=== PATIENT | female | born 1985 | race Caucasian/White ===

== ENCOUNTER 2018-08-10 11:20 | Emergency (ER) | payer BC ==
[2018-08-10] MEDS ORDERED: NS 1,000 ML IV ONE (12:12)
[2018-08-10] MEDS ORDERED: HYDROmorphONE/DILAUDID 2 MG/ML INJ IVP ONE (12:12)
[2018-08-10] MEDS ORDERED: ONDANSETRON 4 MG/2 ML VIAL ONE (12:53)
[2018-08-10] MEDS ORDERED: ONDANSETRON 4 MG/2 ML VIAL IVP ONE (12:59)
[2018-08-10 13:02] LABS: PLATELET COUNT 342 10^3/uL (150-400)
[2018-08-10] MEDS ORDERED: KETOROLAC 15 MG/1 ML SDV IVP ONE (14:33)
--- NOTE | 2018-08-10 14:54 | EDPHY ---
H & P Stated Complaint: Bilat low back/flank pain c N/D x1D. denies bleeding, Hx pylo Time Seen by Provider: 08/10/18 11:54 HPI/ROS: CHIEF COMPLAINT: Low back pain, right groin pain HISTORY OF PRESENT ILLNESS: The patient presents the ED with a 2 day history of low back pain and now right groin and lower abdominal pain. The patient denies any history of fall or trauma. She complains of pain over her bilateral sacroiliac joints. The patient has had some diarrhea. She denies any vomiting , hematemesis or melena. Patient denies any acute numbness or weakness in her lower extremities. She denies any rash, areas of erythema or fluctuance. The patient states her symptoms are exacerbated by movement. She denies any prior history of abdominal surgery. REVIEW OF SYSTEMS: A comprehensive 10 point review of systems is otherwise negative aside from elements mentioned in the history of present illness. Source: Patient Exam Limitations: No limitations - Personal History LMP (Females 10-55): 15-21 Days Ago Current Tetanus/Diphtheria Vaccine: Yes - Medical/Surgical History Hx Asthma: No Hx Chronic Respiratory Disease: No Hx Diabetes: No Hx Cardiac Disease: No Hx Renal Disease: No Hx Cirrhosis: No Hx Alcoholism: No Hx HIV/AIDS: No Hx Splenectomy or Spleen Trauma: No Other PMH: pylonephritis, ovarian cysts - Social History Smoking Status: Never smoked - Physical Exam Exam: General Appearance: Thin female, mild discomfort Eyes: Pupils equal and round no pallor or injection ENT, Mouth: Mucous membranes moist Respiratory: There are no retractions, lungs are clear to auscultation Cardiovascular: Regular rate and rhythm Gastrointestinal: Tenderness to palpation right lower quadrant Neurological: A&O, normal motor function, normal sensory exam, normal cranial nerves Skin: Warm and dry, no rashes Musculoskeletal: Tenderness to palpation over the bilateral sacroiliac region, right greater than left Extremities: symmetrical, full range of motion Psychiatric: Patient is oriented X 3, there is no agitation Constitutional: Initial Vital Signs Temperature (C) 36.5 C 08/10/18 11:26 Heart Rate 102 H 08/10/18 11:26 Respiratory Rate 18 08/10/18 11:26 Blood Pressure 115/79 08/10/18 11:26 O2 Sat (%) 98 08/10/18 11:26 O2 Delivery Mode Room Air Allergies/Adverse Reactions: No Known Allergies Allergy (Unverified 08/10/18 11:25) Medical Decision Making - Diagnostics Imaging Results: Imaging Impressions Abdomen/Pelvis CT 08/10/18 13:32 Impression: Moderate stool in the colon, as can be seen with constipation. No renal or ureteral calculi. Mild right pelvocaliectasis. Findings and recommendations discussed with Vamshi Valle at 1429 hour, 08/10. ED Course/Re-evaluation: Patient had an IV established. She received a L of normal saline. She received 4 mg of Zofran, 1 mg of Dilaudid. Testing in the emergency department demonstrates no evidence of a significant leukocytosis, metabolic derangement, renal failure or urinary tract infection. Given the patient's complaints of back pain and abdominal pain without a obvious clinical diagnosis CT scan of the abdomen pelvis was obtained to evaluate for possible ureterolithiasis versus appendicitis. CT scan of the abdomen pelvis does demonstrate possible constipation but does demonstrate a normal appearing appendix. The patient received IV Toradol. I re-evaluated the patient at 3:00 p.m. And she is feeling better. At this point time I do feel she is experiencing some mild sacroiliitis and a possible lumbar spasm. She continues to be neurologically intact. The patient will be discharged home with instructions to use ibuprofen and lidocaine patches. She is given customary aftercare instructions and return precautions. Differential Diagnosis: Differential diagnosis considered includes nephrolithiasis, pyelonephritis, dehydration, metabolic abnormality, sacroiliitis, ectopic , appendicitis - Data Points Laboratory Results: Laboratory Results 08/10/18 12:40 08/10/18 12:40 08/10/18 08/10/18 08/10/18 12:40 12:40 12:40 WBC 6.85 10^3/uL 10^3/uL (3.80-9.50) RBC 4.38 10^6/uL 10^6/uL (4.18-5.33) Hgb 12.8 g/dL g/dL (12.6-16.3) Hct 38.1 % % (38.0-47.0) MCV 87.0 fL fL (81.5-99.8) MCH 29.2 pg pg (27.9-34.1) MCHC 33.6 g/dL g/dL (32.4-36.7) RDW 14.8 % % (11.5-15.2) Plt Count 342 10^3/uL 10^3/uL (150-400) MPV 9.8 fL fL (8.7-11.7) Neut % (Auto) 72.9 % % (39.3-74.2) Lymph % (Auto) 18.4 % % (15.0-45.0) [place] % (Auto) 6.0 % % (4.5-13.0) Eos % (Auto) 1.8 % % (0.6-7.6) Baso % (Auto) 0.6 % % (0.3-1.7) Nucleat RBC Rel Count 0.0 % % (0.0-0.2) Absolute Neuts (auto) 5.00 10^3/uL 10^3/uL (1.70-6.50) Absolute Lymphs (auto) 1.26 10^3/uL 10^3/uL (1.00-3.00) Absolute Monos (auto) 0.41 10^3/uL 10^3/uL (0.30-0.80) Absolute Eos (auto) 0.12 10^3/uL 10^3/uL (0.03-0.40) Absolute Basos (auto) 0.04 10^3/uL 10^3/uL (0.02-0.10) Absolute Nucleated RBC 0.00 10^3/uL 10^3/uL (0-0.01) Immature Gran % 0.3 % % (0.0-1.1) Immature Gran # 0.02 10^3/uL 10^3/uL (0.00-0.10) Sodium 135 mEq/L mEq/L (135-145) Potassium 4.3 mEq/L mEq/L (3.5-5.2) Chloride 107 mEq/L mEq/L (97-110) Carbon Dioxide 26 mEq/l mEq/l (22-31) Anion Gap 2 mEq/L L mEq/L (6-14) BUN 13 mg/dL mg/dL (7-23) Creatinine 0.8 mg/dL mg/dL (0.6-1.0) Estimated GFR > 60 Glucose 86 mg/dL mg/dL (70-100) Calcium 9.3 mg/dL mg/dL (8.5-10.4) Beta HCG, Qual NEGATIVE Urine Color Urine Appearance Urine pH Ur Specific [place] Urine Protein Urine Ketones Urine Blood Urine Nitrate Urine Bilirubin Urine Urobilinogen Ur Leukocyte Esterase Urine Glucose 08/10/18 12:05 WBC RBC Hgb Hct MCV MCH MCHC RDW Plt Count MPV Neut % (Auto) Lymph % (Auto) [place] % (Auto) Eos % (Auto) Baso % (Auto) Nucleat RBC Rel Count Absolute Neuts (auto) Absolute Lymphs (auto) Absolute Monos (auto) Absolute Eos (auto) Absolute Basos (auto) Absolute Nucleated RBC Immature Gran % Immature Gran # Sodium Potassium Chloride Carbon Dioxide Anion Gap BUN Creatinine Estimated GFR Glucose Calcium Beta HCG, Qual Urine Color YELLOW Urine Appearance CLEAR Urine pH 6.0 (5.0-7.5) Ur Specific [place] 1.018 (1.002-1.030) Urine Protein NEGATIVE (NEGATIVE) Urine Ketones NEGATIVE (NEGATIVE) Urine Blood NEGATIVE (NEGATIVE) Urine Nitrate NEGATIVE (NEGATIVE) Urine Bilirubin NEGATIVE (NEGATIVE) Urine Urobilinogen NEGATIVE EU EU (0.2-1.0) Ur Leukocyte Esterase NEGATIVE (NEGATIVE) Urine Glucose NEGATIVE (NEGATIVE) Medications Given: Discontinued Medications Hydromorphone HCl (Dilaudid) 0.5 mg IVP EDNOW ONE Stop: 08/10/18 12:13 Last Admin: 08/10/18 12:56 Dose: 0.5 mg Sodium Chloride (Ns) 1,000 mls @ 0 mls/hr IV EDNOW ONE; Wide Open PRN Reason: Protocol Stop: 08/10/18 12:13 Last Admin: 08/10/18 12:56 Dose: 1,000 mls Ketorolac Tromethamine (Toradol) 15 mg IVP EDNOW ONE Stop: 08/10/18 14:34 Last Admin: 08/10/18 14:50 Dose: 15 mg Ondansetron HCl (Zofran) 4 mg IVP EDNOW ONE Stop: 08/10/18 13:00 Last Admin: 08/10/18 12:59 Dose: 4 mg Departure - Departure Disposition: Home, Routine, Self-Care Clinical Impression: Sacro-iliac pain Condition: Good Instructions: Musculoskeletal Pain (ED), Sacroiliitis (ED), Lower Back Exercises (ED) Additional Instructions: 1. Take Ibuprofen or Motrin 600 mg by mouth three times a day. 2. Lidocaine patches as prescribed. 3. Please follow-up with your primary care provider as scheduled. 4. Return to the ED for markedly worsening symptoms, acute numbness, weakness or other concerns. 5. You have been given the contact number of one of our back pain specialist in the community, Dr. Jamir Hernandez. Referrals: Jamir Hernandez MD [Medical Doctor] - As per Instructions
[2018-08-10 15:13] VITALS: BP 116/82
== END 2018-08-10 15:13 | disposition home or self-care (01) ==
DX: M53.3 Sacrococcygeal disorders, not elsewhere classified (principal); E86.9 Volume depletion, unspecified
CPT/HCPCS: 96374; J1170; J1885; J2405